=== PATIENT | male | born 1965 | race African-American/Black ===

== ENCOUNTER 2017-07-14 02:44 | Emergency (ER) | payer OTHER ==
[~2017-07-14] VITALS: Ht 185.4 cm; Wt 97.5 kg
--- NOTE | 2017-07-14 02:47 | QN ---
Documentation Comment Patient was seen immediately upon arrival the patient arrived by ambulance. The patient's chief complaint is leg pain. The patient will be sent to triage for vital signs will be seen by another provider. ANDIE PROCTOR MD Jul 14, 2017 02:47
[2017-07-14 02:49] VITALS: Ht 185.4 cm; Wt 97.5 kg
[2017-07-14] MEDS ORDERED: KETOROLAC 30 MG INJ IM STA (03:47)
[2017-07-14] MEDS ORDERED: CYCLOBENZAPRINE 10 MG TAB PO ONE (04:00)
--- NOTE | 2017-07-14 04:25 | ERD ---
ER Documentation Chief Complaint Date/Time DATE: 07/14/17 TIME: 04:22 Chief Complaint HAN parra he might hv "pulled his L hamstring",no trauma;hx ETOH/drugs HPI 51-year-old male with a history of bipolar disorder is brought in by ambulance tonight for, pulled hamstring" and medication refill for Zyprexa. Patient states that he was working out, and he has pain over the IT band, as well as the hamstring and the gluteus of the left side. He describes as sharp pain, radiating from the back to the back of his thigh. He has a history of DVT, he missed his appointment for an ultrasound. He states that he was seen at [facility], was given a pain shot and ibuprofen. He has no difficulty ambulating, he denies saddle anesthesia or loss of bowel bladder function. ROS All systems reviewed and are negative except as per history of present illness. Medications Home Meds Active Scripts Apixaban* (Eliquis*) 5 Mg Tablet, 10 MG PO BID, #13 TAB Prov:MARQUITA GARCIA PA-C 07/14/17 Olanzapine* (Zyprexa*) 10 Mg Tablet, 10 MG PO DAILY, #30 TAB Prov:MARQUITA GARCIA PA-C 07/14/17 Cyclobenzaprine Hcl* (Cyclobenzaprine Hcl*) 10 Mg Tablet, 10 MG PO TID, #15 TAB Prov:MARQUITA GARCIA PA-C 07/14/17 Allergies Allergies: Coded Allergies: No Known Allergy (Unverified , 07/14/17) PMhx/Soc History of Surgery: No Hx Alcohol Use: Yes Hx Substance Use: Yes (THC) Hx Tobacco Use: Yes Smoking Status: Current some day smoker Physical Exam Vitals Vital Signs Date Time Temp Pulse Resp B/P Pulse Ox O2 Delivery O2 Flow Rate FiO2 07/14/17 02:49 98.3 97 18 123/81 97 Physical Exam General: Well-developed, well-nourished. The patient appears in no acute distress. HEENT: Head is normocephalic, atraumatic. No scleral icterus. Neck: Supple. Nontender. Lungs: Clear to auscultation. Normal air movement. Heart: Regular rate and rhythm. S1 and S2 are normal. No murmurs, gallops, or rubs. Abdomen: Nondistended. Soft, nontender. Extremities: Tender over the left mid gluteus, he has no swelling to the left lower extremity. He has no rashes. He has full range of motion with left hip flexion and extension. He is ambulatory. Neurologic: Alert and oriented 3. No focal deficits. Normal speech and gait. Skin: Normal turgor. No rash or lesions. Results 24 hrs Current Medications Medications (Trade) Dose Ordered Sig/Nicolle Route PRN Reason Start Time Stop Time Status Last Admin Dose Admin Ketorolac Tromethamine (Toradol) 30 mg ONCE STAT IM 07/14/17 03:47 07/14/17 03:49 DC Cyclobenzaprine HCl (Flexeril) 10 mg ONCE ONCE PO 07/14/17 04:00 07/14/17 04:01 DC Apixaban (Eliquis) 10 mg ONCE PO 07/14/17 05:30 07/14/17 06:30 DIAGNOSTIC IMAGING REPORT Patient: GIL HOOVER : 1965 Age: 51 Sex: M MR #: [id number] DOS: 07/14/17 0348 Ordering MD: MARQUITA GARCIA PA-C Location: [facility] Room/Bed: PROCEDURE: US left lower extremity venous Doppler CLINICAL INDICATION: Swelling TECHNIQUE: Multiple sonographic images of the left lower extremity deep venous system was obtained utilizing grayscale, color-flow, compressive sonography and Doppler imaging with augmentation. COMPARISON: No pertinent prior examinations were submitted for comparison. FINDINGS: There is normal compressibility and flow within the left common femoral and superficial femoral veins. There is some echogenic thrombus within the left popliteal vein with partial loss of compressibility and flow. The images are apparently mislabeled as the right lower extremity although according to the tire and lube technician's note and the order placed, the left lower extremity was imaged. IMPRESSION: Positive for partial thrombosis of the popliteal vein. RPTAT: HIKT .Nixon Ugarte MD, Date Time Electronically viewed and signed by .Nixon Ugarte MD, on 07/14/2017 04:55 .T/ CC: MARQUITA GARCIA PA-C Procedures/MDM ED course: Patient was given Toradol as well as Flexeril for symptoms. Patient was given his first dose of Eliquis here. Medical decision makin-year-old male presents with a left gluteal pain that goes to his hamstring, this is likely muscular pain, without signs of cauda equina, epidural abscess. Bony abnormality, cellulitis. Patient has a history of a DVT on that leg the left lower extremity, he states that he missed his appointment for an ultrasound, DVT shows a partial thrombus of the popliteal vein on the left lower extremity. This was discussed at length with the patient that hospitalization was advised, for monitoring, and continuing treatment including Eliquis. He was told the risks of leaving AGAINST MEDICAL ADVICE including limb loss, infection, DVT worsening, pulmonary embolus, however patient states that he needs to go home to attend his belongings in his housing situation and he is leaving AGAINST MEDICAL ADVICE. Patient also has a history of bipolar disorder and he will be given a right medication refill for Zyprexa 10 mg. Patient's blood pressure was elevated (>120/80) but appears stable without evidence of hypertension emergency or urgency. The patient was counseled about the risks of hypertension and urged to pursue outpatient monitoring and therapy within a week with their primary care physician. The case was reviewed and discussed with Dr. Hubbard who agrees with the plan of care including labs, treatment, and advanced imaging as appropriate. Departure Diagnosis: Primary Impression: DVT (deep venous thrombosis) Additional Impressions: Pain of left leg Bipolar disorder Medication refill Condition: Stable MARQUITA GARCIA PA-C Jul 14, 2017 04:25
[2017-07-14] MEDS ORDERED: CYCL-319 PO (04:26)
[2017-07-14] MEDS ORDERED: OLAN10TA7 PO (04:26)
--- NOTE | 2017-07-14 04:55 | RADRPT ---
PROCEDURE: US left lower extremity venous Doppler CLINICAL INDICATION: Swelling TECHNIQUE: Multiple sonographic images of the left lower extremity deep venous system was obtained utilizing grayscale, color-flow, compressive sonography and Doppler imaging with augmentation. COMPARISON: No pertinent prior examinations were submitted for comparison. FINDINGS: There is normal compressibility and flow within the left common femoral and superficial femoral vein s. There is some echogenic thrombus within the left popliteal vein with partial loss of compressibility and flow. The images are apparently mislabeled as the right lower extremity although according to the technici an's note and the order placed, the left lower extremity was imaged. IMPRESSION: Positive for partial thrombosis of the popliteal vein. RPTAT: HIKT .Nixon Ugarte MD, MD Date Time Electronically viewed and signed by .Nixon Ugarte MD, on 07/14/2017 04:55 .T/
[2017-07-14] MEDS ORDERED: APIX5TAB PO (05:19)
[2017-07-14] MEDS ORDERED: APIXABAN 5 MG TABLET PO SCH (05:30)
== END 2017-07-14 05:45 | disposition left against medical advice (07) ==
LOC: FTE 02:44
DX: I82.402 Acute embolism and thrombosis of unspecified deep veins of left lower extremity (principal); M79.605 Pain in left leg; F31.9 Bipolar disorder, unspecified; F17.210 Nicotine dependence, cigarettes, uncomplicated; Z79.01 Long term (current) use of anticoagulants
CPT/HCPCS: 93971; J1885; Z7502; Z7610; 99284

== ENCOUNTER 2017-10-12 04:31 | Emergency (ER) | payer OTHER ==
[~2017-10-12] VITALS: Ht 185.4 cm; Wt 93.2 kg
[~2017-10-12 04:31] MED LIST: APIX5TAB PO; CYCL-319 PO; OLAN10TA7 PO
[2017-10-12 04:45] VITALS: Ht 185.4 cm; Wt 93.2 kg
--- NOTE | 2017-10-12 04:59 | ERD ---
ER Documentation Chief Complaint Chief Complaint HPI 51-year-old man with a history of depression brought in by [employer] with a 5150 psychiatric hold. He is here for medical clearance pending transfer to [facility] psychiatric facility. Patient has a long history of depression and has had increased suicidal thoughts over the last few weeks. He denies fevers or chills , no headache or blurry vision, no shortness of breath, no vomiting or diarrhea. ROS All systems reviewed and are negative except as per history of present illness. Medications Home Meds Active Scripts Apixaban* (Eliquis*) 5 Mg Tablet, 10 MG PO BID, #13 TAB Prov:MARQUITA GARCIA PA-C 07/14/17 Olanzapine* (Zyprexa*) 10 Mg Tablet, 10 MG PO DAILY, #30 TAB Prov:MARQUITA GARCIA PA-C 07/14/17 Cyclobenzaprine Hcl* (Cyclobenzaprine Hcl*) 10 Mg Tablet, 10 MG PO TID, #15 TAB Prov:MARQUITA GARCIA PA-C 07/14/17 Allergies Allergies: Coded Allergies: No Known Allergy (Unverified , 07/14/17) PMhx/Soc Depression History of Surgery: No Hx Alcohol Use: Yes Hx Substance Use: Yes (THC) Hx Tobacco Use: Yes FmHx Family History: No diabetes Physical Exam Vitals Vital Signs Date Time Temp Pulse Resp B/P Pulse Ox O2 Delivery O2 Flow Rate FiO2 10/12/17 04:45 98.1 88 16 118/69 98 Physical Exam GENERAL: Well-developed, well-nourished, well-hydrated, appears depressed HEENT: Moist mucous membranes, pink conjunctiva, no cervical spine tenderness or step-off deformities, no goiter, no jaundice or icterus, extraocular movements intact without pain. No submandibular induration, and no pharyngeal erythema NEURO: Alert and oriented 3, cranial nerves II through XII intact bilaterally, pupils equal round reactive to light, no focal deficits or facial asymmetry, sensation intact distally Strength 5/5 in upper and lower extremities bilaterally CARDIAC: Regular rate and rhythm, no murmurs rubs or gallops LUNGS: Clear bilaterally no wheezing crackles or stridor ABDOMEN: Soft nontender, no guarding, no rigidity, no rebound, no psoas sign no obturator sign. Normoactive bowel sounds SKIN: Warm and dry to touch, no abrasions, contusions, or hematomas, no lacerations, no ecchymosis, no target lesions, and without ulcers EXTREMITIES: No clubbing cyanosis or edema, calves are bilaterally symmetrical, no Homans sign, no popliteal cord sign. Distal pulses equal and bilateral PSYCH: Depressed affect Results 24 hrs Current Medications Medications (Trade) Dose Ordered Sig/Nicolle Route PRN Reason Start Time Stop Time Status Last Admin Dose Admin Ibuprofen (Motrin) 600 mg ONCE ONCE PO 10/12/17 05:00 10/12/17 05:01 Lorazepam (Ativan) 1 mg ONCE ONCE PO 10/12/17 05:00 10/12/17 05:01 Procedures/MDM Security one-to-one watch was established and [facility] facilities were contacted. I administered ibuprofen 600 mg p.o. for complaints of pain and lorazepam 1 mg p.o. for his symptoms. CBC and electrolytes were within normal limits, liver function tests were normal , troponin was negative, urine drug screen pending and I will follow-up. Ethanol level, aspirin Tylenol levels were negative. Patient's behavioral symptoms have stabilized while in the department. Patient is medically cleared and appropriate for psychiatric evaluation and work up. No e/o neurologic, toxic, infectious, or metabolic cause. Departure Diagnosis: Primary Impression: Suicidal ideation Additional Impression: Depression Depression Type: major depressive disorder Major depression recurrence: single episode Active/Remission status: currently active Major depression episode severity: moderate Qualified Code: F32.1 - Current moderate episode of major depressive disorder without prior episode Condition: RUBA Seymour MD Oct 12, 2017 04:59
[2017-10-12] MEDS ORDERED: IBUPROFEN 600 MG TAB PO ONE (05:00)
[2017-10-12] MEDS ORDERED: LORAZEPAM 1 MG TAB PO ONE (05:00)
[2017-10-12 05:57] LABS: BASOPHIL # 0.1 10^3/ul (0.0-0.1); BASOPHILS % 0.8 % (0.0-2.0); EOSINOPHILS # 0.1 10^3/ul (0.0-0.5); EOSINOPHILS % 1.4 % (0.0-7.0); HEMATOCRIT 33.6 % (42.0-52.0); HEMOGLOBIN 11.4 g/dl (14.0-18.0); LYMPHOCYTES # 2.3 10^3/ul (0.8-2.9); LYMPHOCYTES % 27.2 % (15.0-51.0); MEAN CORPUSCULAR HEMOGLOBIN 27.3 pg (29.0-33.0); MEAN CORPUSCULAR HGB CONC 33.9 g/dl (32.0-37.0); MEAN CORPUSCULAR VOLUME 80.6 fl (82.0-101.0); MEAN PLATELET VOLUME 10.8 fl (7.4-10.4); MONOCYTE # 0.6 10^3/ul (0.3-0.9); MONOCYTES % 6.9 % (0.0-11.0); NEUTROPHIL # 5.3 10^3/ul (1.6-7.5); NEUTROPHILS % 63.3 % (39.0-77.0); PLATELET COUNT 212 10^3/UL (140-415); RED BLOOD COUNT 4.17 10^6/ul (4.70-6.10); RED CELL DISTRIBUTION WIDTH 14.2 % (11.5-14.5); WHITE BLOOD COUNT 8.4 10^3/ul (4.8-10.8)
[2017-10-12 06:04] LABS: ADD UMIC NO; UR ASCORBIC ACID NEGATIVE (NEGATIVE); UR BILIRUBIN (Dip) NEGATIVE (NEGATIVE); UR BLOOD (Dip) NEGATIVE (NEGATIVE); UR CLARITY CLEAR (CLEAR); UR COLOR YELLOW (YELLOW); UR GLUCOSE (Dip) NEGATIVE (NEGATIVE); UR KETONES (Dip) NEGATIVE (NEGATIVE); UR LEUKOCYTE ESTERASE (Dip) NEGATIVE Leu/ul (NEGATIVE); UR NITRITE (Dip) NEGATIVE (NEGATIVE); UR SPECIFIC GRAVITY (Dip) 1.012 (1.003-1.030); UR TOTAL PROTEIN (Dip) NEGATIVE (NEGATIVE); UR UROBILINOGEN (Dip) NEGATIVE (NEGATIVE)
--- NOTE | 2017-10-12 06:04 | PSY ---
Date/Time of Note Date/Time of Note DATE: 10/12/17 TIME: 06:03 Psychiatric Subjective Eval Consent Pt consented to telemedicine: Yes Subjective Evaluation Patient location: emergency Medical history Problems Medical Problems: (1) Bipolar disorder Status: Acute (2) Depression Status: Acute (3) DVT (deep venous thrombosis) Status: Acute (4) Medication refill Status: Acute (5) Pain of left leg Status: Acute (6) Suicidal ideation Status: Acute Allergies: Coded Allergies: No Known Allergy (Unverified , 07/14/17) Psychiatric Objective Eval Mental Status Examination: Laboratory Results Laboratory Tests Test 10/12/17 05:20 White Blood Count 8.410^3/ul Red Blood Count 4.1710^6/ul Hemoglobin 11.4g/dl Hematocrit 33.6% Mean Corpuscular Volume 80.6fl Mean Corpuscular Hemoglobin 27.3pg Mean Corpuscular Hemoglobin Concent 33.9g/dl Red Cell Distribution Width 14.2% Platelet Count 01653^3/UL Mean Platelet Volume 10.8fl Neutrophils % 63.3% Lymphocytes % 27.2% Monocytes % 6.9% Eosinophils % 1.4% Basophils % 0.8% Nucleated Red Blood Cells % 0.0/100WBC Neutrophils # 5.310^3/ul Lymphocytes # 2.310^3/ul Monocytes # 0.610^3/ul Eosinophils # 0.110^3/ul Basophils # 0.110^3/ul Nucleated Red Blood Cells # 0.010^3/ul Assessment Additional comments: IDENTIFYING INFORMATION: 51 year old -[place] Male patient who is currently located at the hospital and for whom psychiatric consultation was requested. SOURCES OF INFORMATION: The patient who appears to be somewhat reliable and the medical records; the nursing staff. CHIEF COMPLAINT: "severe depression". HISTORY OF PRESENT ILLNESS: The patient was interviewed via telemedicine in the presence of and under the supervision of nursing staff of the hospital. The consent to conducting this interview via telemedicine was obtained by the nursing staff at the hospital. LORETTA Mott reports that the patient was brought in by police for AH and having thoughts of wanting to hurt himself. Is on a 5150 hold; per ppw, the pt stated that he wanted to hurt/kill himself by jumping, and reported having AH in the context of not taking his medications. The patient reports that he has been depressed persistently, anhedonia, insomnia , fatigue, low appetite, SI with plan to jump off a bridge. Admits to AH telling him that people may be going after him. Admits to feeling paranoid. Denies having VH. The patient reports drinking alcohol occasionally, having 2-3 beers per occasion. The patient denies using alcohol heavily or regularly. The patient reports using MJ daily. Last use was yesterday. The patient denies using any other substances. In terms of past psychiatric history, the patient reports having a history of past psychiatric hospitalizations. The patient reports having a history of past suicide attempts. Past medication trials: zyprexa. PAST MEDICAL HISTORY: blood clot disorder. CURRENT MEDICATIONS: cyclobenzaprin, zyroto (blood thinner). ALLERGIES TO MEDICATIONS: NKDA. SOCIAL HISTORY: lives at an apartment, single, 1 son; not employed; no access to firearms. LABORATORY TESTS: pending. REVIEW OF SYSTEMS: Constitutional (e.g., fever, weight loss): negative; Eyes, Ears, Nose, Mouth, Throat: negative; Cardiovascular: negative; Respiratory: negative; Gastrointestinal: negative; Genitourinary: negative; Musculoskeletal: + left shoulder pain; Integumentary (skin and/or breast): negative; Neurological: negative; Psychiatric: as per HPI; Endocrine: negative; Hematologic/Lymphatic: negative; Allergic/Immunologic: negative. MENTAL STATUS EXAMINATION: General Appearance and Behavior: anxious, cooperative with the interview, pleasant with the current interviewer, makes fair eye contact, poorly groomed, no abnormal movements noted. Speech: normal rate, regular rhythm, normal latency, normal volume. Flow of thought: sequential, logical, goal-directed. Content of thought: + auditory hallucinations, no visual hallucinations, + delusions, positive for suicidal ideation; no homicidal ideation. Mood: "depressed". Affect: dysthymic, dysphoric, not reactive. Attention: normal based on the interview. Insight: fair. Judgment: poor. Memory: normal based on the interview. Sensorium: alert and oriented to person, place, October 11, 2017. ASSESSMENT: The patient's presentation and history are consistent with the diagnosis of unspecified psychotic disorder, cannabis use disorder. The patient presents with an exacerbation of psychosis in the context of medication noncompliance, psychosocial stressors and substance use. [place] I: unspecified psychotic disorder, cannabis use disorder. [place] II: Deferred. [place] III: see PMH. [place] IV: social stressors. [place] V: GAF: 10. PLAN: - Medication management: Would start zyprexa 5 mg po bid, cyclobenzaprine 10 mg po tid. Would start haloperidol 5 mg IM PRN severe agitation q4 hours. Would start diphenhydramine 50 mg IM PRN severe agitation q4 hours. Would start lorazepam 2 mg IM PRN severe agitation q4 hours Will defer to the inpatient psychiatry team for other medication changes. - Labs: please check CBC, CMP, UDS, alcohol level. - Psychotherapy: Provided supportive psychotherapy and psychoeducation. - Disposition: Would recommend involuntary admission to the inpatient psychiatric unit given the severity of the patient's psychiatric condition and the fact that the patient is an imminent danger to self and/or others so long as the patient has been cleared medically for admission to psychiatry. Inpatient psychiatric admission is at this time the least restrictive environment where the patient can receive the psychiatric care that is needed. Would place on suicide precautions. The patient fulfills criteria for being placed on an involuntary hold for being a danger to self due to a psychiatric disorder. Discussed about the above plan with Dr. Rick. ROEL PICHARDO MD Oct 12, 2017 06:04
[2017-10-12 06:21] LABS: ALANINE AMINOTRANSFERASE 46 IU/L (13-69); ALBUMIN 3.8 g/dl (3.3-4.9); ALBUMIN/GLOBULIN RATIO 1.35; ALKALINE PHOSPHATASE 126 IU/L (42-121); ANION GAP 14 (8-16); ASPARTATE AMINO TRANSFERASE 47 IU/L (15-46); BILIRUBIN,INDIRECT 0.1 mg/dl (0-1.1); BILIRUBIN,TOTAL 0.1 mg/dl (0.2-1.3); BLOOD UREA NITROGEN 18 mg/dl (7-20); CALCIUM 8.5 mg/dl (8.4-10.2); CARBON DIOXIDE 25 mmol/L (21-31); CHLORIDE 107 mmol/L (97-110); CREATININE 1.08 mg/dl (0.61-1.24); GLUCOSE 87 mg/dl (70-220); POTASSIUM 4.4 mmol/L (3.5-5.1); SODIUM 142 mmol/L (135-144); TOTAL PROTEIN 6.6 g/dl (6.1-8.1)
[2017-10-12 06:22] LABS: BARBITURATES Positive (NEGATIVE)
[2017-10-12 06:24] LABS: ACETAMINOPHEN < 10.0 ug/ml (10.0-30.0); BENZODIAZEPINES Negative (NEGATIVE); CANNABINOIDS Positive (NEGATIVE); COCAINE Negative (NEGATIVE); OPIATES Negative (NEGATIVE); SALICYLATE < 1.0 mg/dl (5.0-30.0)
[2017-10-12] MEDS ORDERED: OLANZAPINE 5 MG TAB PO ONE (06:30)
[2017-10-12 06:32] LABS: TROPONIN-I 0.013 ng/ml (0.00-0.12)
--- NOTE | 2017-10-12 10:39 | QN ---
ERNIE FUENTES MD 10/12/17 1039: Documentation Comment 51-year-old male with a history of bipolar disease and lower extremity DVT on Eliquis placed on a 5150 hold by [employer]. Patient was medically cleared by Dr. Rick and is pending placement. Resting comfortably. Vital signs stable. VILMA SENIOR DO 10/12/17 1837: Documentation Comment I also observe this patient is a 5150 hold. He stated that he had a meeting to go to in the morning and he did not have any thoughts of harming himself or others tomorrow. I had him evaluated again by tele-psychiatry who does continue to recommend a 5150 hold. Also recommend Zyprexa 5 mg twice daily which I have ordered with the first dose to be given now. His vital signs are stable he is otherwise calm. ERNIE FUENTES MD Oct 12, 2017 10:39 VILMA SENIOR DO Oct 12, 2017 18:37
--- NOTE | 2017-10-12 17:27 | PSY ---
Date/Time of Note Date/Time of Note DATE: 10/12/17 TIME: 20:22 Psychiatric Subjective Eval Consent Pt consented to telemedicine: Yes Subjective Evaluation Patient location: emergency History of present illness HPI: 51 yo male with ho mood do and psychosis and substance use disorder, bib police on 5150 for AH to kill self as well as Si with a plan. This occurred in the context of using etoh, thc, barbiturates, and methamphetamine. was asked to re eval pt as he wants to be discharged. MD met with pt. He reports that he has no more ah or si and wants to go home. Reports that he "just needed to sleep." Pt minimized what happened, denied using any substances besides thc and etoh. Reported that he needs to be discharged to go to a hearing tomorrow. Past Psych Hx: ho past admits and suicide attempts PMHx: positive Meds: reports has been non adherent All: nkda MSE: evasive, eating food, normal speech, reports good mood, organized, evasive , minimizing, no delusions denies avh denies si/hi, poor insight and reliability Imp: 51 yo male [employer] for AH to kill self, SI with plan, in context of med nonadherence and substance use. Pt reports sxs have resolved after only hours though also has poor reliability and clearly indicates other motivation to leave. Given the very recent si and CAH to kill self, non adherence with meds ( risk factor), substance use, ho past suicide attempts, recent si (reports all si and ah resolved without essentially any treatment) and impaired reliability, pt remains acute risk of harm to self 5150 psych admit zyprexa 5mg po bid and 5mg po prn moderate agitation daily thiamine 100mg po folate 1mg po mvi for severe agitation haldol 5mg im ativan 2mg im cogentin 1mg im prn Medical history Problems Medical Problems: (1) Bipolar disorder Status: Acute (2) Depression Status: Acute (3) DVT (deep venous thrombosis) Status: Acute (4) Medication refill Status: Acute (5) Pain of left leg Status: Acute (6) Suicidal ideation Status: Acute Allergies: Coded Allergies: No Known Allergy (Unverified , 07/14/17) Psychiatric Objective Eval Mental Status Examination: Laboratory Results Laboratory Tests Test 10/12/17 05:20 White Blood Count 8.410^3/ul Red Blood Count 4.1710^6/ul Hemoglobin 11.4g/dl Hematocrit 33.6% Mean Corpuscular Volume 80.6fl Mean Corpuscular Hemoglobin 27.3pg Mean Corpuscular Hemoglobin Concent 33.9g/dl Red Cell Distribution Width 14.2% Platelet Count 50856^3/UL Mean Platelet Volume 10.8fl Neutrophils % 63.3% Lymphocytes % 27.2% Monocytes % 6.9% Eosinophils % 1.4% Basophils % 0.8% Nucleated Red Blood Cells % 0.0/100WBC Neutrophils # 5.310^3/ul Lymphocytes # 2.310^3/ul Monocytes # 0.610^3/ul Eosinophils # 0.110^3/ul Basophils # 0.110^3/ul Nucleated Red Blood Cells # 0.010^3/ul Urine Color YELLOW Urine Clarity CLEAR Urine pH 5.0 Urine Specific [place] 1.012 Urine Ketones NEGATIVEmg/dL Urine Nitrite NEGATIVEmg/dL Urine Bilirubin NEGATIVEmg/dL Urine Urobilinogen NEGATIVEmg/dL Urine Leukocyte Esterase NEGATIVELeu/ul Urine Hemoglobin NEGATIVEmg/dL Urine Glucose NEGATIVEmg/dL Urine Total Protein NEGATIVEmg/dl Sodium Level 142mmol/L Potassium Level 4.4mmol/L Chloride Level 107mmol/L Carbon Dioxide Level 25mmol/L Anion Gap 14 Blood Urea Nitrogen 18mg/dl Creatinine 1.08mg/dl Glucose Level 87mg/dl Calcium Level 8.5mg/dl Total Bilirubin 0.1mg/dl Direct Bilirubin 0.00mg/dl Indirect Bilirubin 0.1mg/dl Aspartate Amino Transf (AST/SGOT) 47IU/L Alanine Aminotransferase (ALT/SGPT) 46IU/L Alkaline Phosphatase 126IU/L Troponin I 0.013ng/ml Total Protein 6.6g/dl Albumin 3.8g/dl Globulin 2.80g/dl Albumin/Globulin Ratio 1.35 Salicylates Level < 1.0mg/dl Urine Opiates Screen Negative Acetaminophen Level < 10.0ug/ml Urine Barbiturates Positive Urine Amphetamines Screen POSITIVE Urine Benzodiazepines Screen Negative Urine Cocaine Screen Negative Urine Cannabinoids Positive Ethyl Alcohol Level 20.0mg/dl KENDRICK BLANKENSHIP Oct 12, 2017 17:27
[2017-10-12] MEDS ORDERED: OLANZAPINE 5 MG TAB PO SCH (18:34)
--- NOTE | 2017-10-12 22:42 | PSY ---
Date/Time of Note Date/Time of Note DATE: 10/12/17 TIME: 22:33 Psychiatric Subjective Eval Consent Pt consented to telemedicine: Yes Subjective Evaluation Patient location: emergency Chief Complaint: i need to leave i have a hearing at 10 am Reason for consult: depression and si , no longer suicidal History of present illness patient is a 51 yo male with PPH Of bipolar do and methamphetamine abuse who came to the ER brought in on a 5150 hold by the police due to SI and being agitated while intoxicated with methamphetamine , patient was seen twice by telepsych and at the time was kept on the 5150 for DTS. HOwever, patient is now denying feeling suicidal , he is eager to leave because he is afraid that if he does not go to his court hearing he might lose his housing , he has one son. He denies feeling suicidal anymore, or homicidal, denies hearing voices, he is pleasant and friendly , he is logical and goal directed, he states that he has been feeling depressed, and anxious for the past few weeks due to being "stressed out about my life and no job", he states that he has been off his medication for weeks, zyprexa and wants to get back on it, he smokes thc daily and uses methamphetamine "because i am depressed " He states that he had not slept for days and that is why he was hearing voices and being confused. Past psychiatric history past suicidal attempt no Hospitalization: yes Family History denies Medical history Problems Medical Problems: (1) Bipolar disorder Status: Acute (2) Depression Status: Acute (3) DVT (deep venous thrombosis) Status: Acute (4) Medication refill Status: Acute (5) Pain of left leg Status: Acute (6) Suicidal ideation Status: Acute Allergies: Coded Allergies: No Known Allergy (Unverified , 07/14/17) Substance Abuse Substance abuse history: Yes (methamphetamine thc) Prior substance abuse treatmen: No Social History Marital status: single Level of education: hs DPA/Conservatorship: No Occupation/Fdc: no Psychiatric Objective Eval Review of Systems: Review of Systems: Not Applicable Physical Examination: Physical Examination: Applicable Sleep: Insomnia Appetite: Decreased Energy: Decreased Interest: Decreased Mental Status Examination: Appearance: Disheveled Eye Contact: Good Psychomotor Activity: Normal Behavior: Friendly Speech: Clear AFFECT: Appropriate Mood: Depressed Though Process: Linear Thought Content: Normal Suicidal: No Homicidal: No On 72 hour hold: No Orientation: x3 Cognition: Alert Insight: Intact Judgement: Intact Attention Span: Intact Laboratory Results Laboratory Tests Test 10/12/17 05:20 White Blood Count 8.410^3/ul Red Blood Count 4.1710^6/ul Hemoglobin 11.4g/dl Hematocrit 33.6% Mean Corpuscular Volume 80.6fl Mean Corpuscular Hemoglobin 27.3pg Mean Corpuscular Hemoglobin Concent 33.9g/dl Red Cell Distribution Width 14.2% Platelet Count 51802^3/UL Mean Platelet Volume 10.8fl Neutrophils % 63.3% Lymphocytes % 27.2% Monocytes % 6.9% Eosinophils % 1.4% Basophils % 0.8% Nucleated Red Blood Cells % 0.0/100WBC Neutrophils # 5.310^3/ul Lymphocytes # 2.310^3/ul Monocytes # 0.610^3/ul Eosinophils # 0.110^3/ul Basophils # 0.110^3/ul Nucleated Red Blood Cells # 0.010^3/ul Urine Color YELLOW Urine Clarity CLEAR Urine pH 5.0 Urine Specific [place] 1.012 Urine Ketones NEGATIVEmg/dL Urine Nitrite NEGATIVEmg/dL Urine Bilirubin NEGATIVEmg/dL Urine Urobilinogen NEGATIVEmg/dL Urine Leukocyte Esterase NEGATIVELeu/ul Urine Hemoglobin NEGATIVEmg/dL Urine Glucose NEGATIVEmg/dL Urine Total Protein NEGATIVEmg/dl Sodium Level 142mmol/L Potassium Level 4.4mmol/L Chloride Level 107mmol/L Carbon Dioxide Level 25mmol/L Anion Gap 14 Blood Urea Nitrogen 18mg/dl Creatinine 1.08mg/dl Glucose Level 87mg/dl Calcium Level 8.5mg/dl Total Bilirubin 0.1mg/dl Direct Bilirubin 0.00mg/dl Indirect Bilirubin 0.1mg/dl Aspartate Amino Transf (AST/SGOT) 47IU/L Alanine Aminotransferase (ALT/SGPT) 46IU/L Alkaline Phosphatase 126IU/L Troponin I 0.013ng/ml Total Protein 6.6g/dl Albumin 3.8g/dl Globulin 2.80g/dl Albumin/Globulin Ratio 1.35 Salicylates Level < 1.0mg/dl Urine Opiates Screen Negative Acetaminophen Level < 10.0ug/ml Urine Barbiturates Positive Urine Amphetamines Screen POSITIVE Urine Benzodiazepines Screen Negative Urine Cocaine Screen Negative Urine Cannabinoids Positive Ethyl Alcohol Level 20.0mg/dl Assessment and Plan Assessment/Diagnosis [place] I: methamphetaamine intoxication in remission mood do nos methamphetamine abuse [place] II: deferred [place] III: as per record [place] IV: unemployed [place] V: gaf 67 Recommendation/Plan Medication Management zyprexa 5 mg po qhs for one month Follow-up/Disposition In my opinion,for this patient, outpatient care is the least restrictive option. Based on available evidence, ~this condition CAN be safely treated at a lower level of care effective today. Patient is stable without ~clear and convincing evidence of imminent danger due to mental illness that requires acute inpatient psychiatric ~care as the least restrictive alternative. Please discharge patient with referral for follow up to a outpatient mental health clinic for psychotherapy and medication. 5150 Recommendation: KANDACE Cheema MD Oct 12, 2017 22:42
[2017-10-12] MEDS ORDERED: OLAN5TAB5 PO (23:05)
[2017-10-12 23:12] VITALS: BP 139/103; PULSE 83; RESP 18; TEMP 98.2
== END 2017-10-12 23:15 ==
LOC: E/R 04:31
DX: F32.1 Major depressive disorder, single episode, moderate (principal); R40.2252 Coma scale, best verbal response, oriented, at arrival to emergency department; R40.2142 Coma scale, eyes open, spontaneous, at arrival to emergency department; R40.2362 Coma scale, best motor response, obeys commands, at arrival to emergency department
CPT/HCPCS: 36415; 80053; 80306; 80307; 81003; 84484; 85025; Z7502; Z7610; 99285